=== PATIENT | female | born 1960 | race African-American/Black ===

== ENCOUNTER 2019-11-13 17:11 | Inpatient (IN) | payer OTHER ==
[2019-11-13 19:44] VITALS: BMI 25.5
--- NOTE | 2019-11-13 22:36 | HP ---
CIWA Score Nausea/Vomitin-Mild Nausea/No Vomiting Muscle Tremors: 4-Moderate,w/Arms Extend Anxiety: 2 Agitation: 0-Normal Activity Paroxysmal Sweats: 4-Forehead w/Sweat Beads Orientation: 1-Uncertain about Date Tacttile Disturbances: 0-None Auditory Disturbances: 0-None Visual Disturbances: 0-None Headache: 2-Mild CIWA-Ar Total Score: 14 - Admission Criteria OASAS Guidelines: Admission for Medically Managed Detox: Requires at least one of the followin. CIWA greater than 12 2. Seizures within the past 24 hours 3. Delirium tremens within the past 24 hours 4. Hallucinations within the past 24 hours 5. Acute intervention needed for co occurring medical disorder 6. Acute intervention needed for co occurring psychiatric disorder 7. Severe withdrawal that cannot be handled at a lower level of care (continued vomiting, continued diarrhea, abnormal vital signs) requiring intravenous medication and/or fluids 8. Admitting History and Physical - Smoking History Smoking history: Current every day smoker Have you smoked in the past 12 months: Yes Aproximately how many cigarettes per day: 1 - Alcohol/Substance Use Hx Alcohol Use: Yes (BEER/GIORGY VODKA) Admission ROS [facility] Chief Complaint: Alcohol withdrawal symptoms Allergies/Adverse Reactions: Allergies Allergy/AdvReac Type Severity Reaction Status Date / Time No Known Allergies Allergy Verified 11/13/19 19:18 History of Present Illness: 59 years old female with a long history of alcohol dependence is seeking admission to detox. Patient reports that her last detox was for the period 05/20 - 05/24/2015. [facility] Patient reports insignificant period of sobriety and denies any detoxification since May 2015. She denies any medical history, psych. history and suicidal ideation at this time. She reports that she is homeless and has been in [facility] multiple times. Exam Limitations: No Limitations - Ebola screening Have you traveled outside of the country in the last 21 days: No (N) Have you had contact with anyone from an Ebola affected area: No Do you have a fever: No - Review of Systems Constitutional: Chills, Changes in sleep EENT: reports: No Symptoms Reported Respiratory: reports: No Symptoms reported Cardiac: reports: No Symptoms Reported GI: reports: No Symptoms Reported : reports: No Symptoms Reported Musculoskeletal: reports: Back Pain Neuro: reports: No Symptoms reported Endocrine: reports: No Symptoms Reported Hematology: reports: No Symptoms Reported Psychiatric: reports: Mood/Affect Appropiate Other Systems: Reviewed and Negative Patient History - Patient Medical History Hx Anemia: No Hx Asthma: No Hx Chronic Obstructive Pulmonary Disease (COPD): No Hx Cardiac Disorders: No Hx Hypertension: No Hx Hypercholesterolemia: No HX Cerebrovascular Accident: No Hx Seizures: No Hx Diabetes: No Hx Gastrointestinal Disorders: No Hx Genitourinary Disorders: No Hx Sexually Transmitted Disorders: No Hx Renal Disease (ESRD): No Hx Thyroid Disease: No Hx Human Immunodeficiency Virus (HIV): No (NEGATIVE ) Hx Hepatitis C: No (REQUESTS TESTING) Hx Depression: No Hx Suicide Attempt: No (Denies suicidal ideation at this ) Hx Schizophrenia: No - Patient Surgical History Past Surgical History: Yes Hx Neurologic Surgery: No Hx Cataract Extraction: No Hx Cardiac Surgery: No Hx Lung Surgery: No Hx Breast Surgery: No Hx Breast Biopsy: No Hx Abdominal Surgery: No Hx Appendectomy: No Hx Cholecystectomy: No Hx Genitourinary Surgery: No Hx Section: No Hx Orthopedic Surgery: No Other Surgical History: CARPEL TUNNEL SUIRGERY Anesthesia Reaction: No - PPD History Previous Implant?: Yes Documented Results: Negative w/proof Implanted On Prior [facility] Admission?: Yes Date: 05/22/15 PPD to be Administered?: Yes - Reproductive History Patient is a Female of Child Bearing Age (11 -55 yrs old): Yes LMP comment: MENOPAUSAL 10 YEARS AGO - Smoking Cessation Smoking history: Former smoker Have you smoked in the past 12 months: No Aproximately how many cigarettes per day: 0 Hx Chewing Tobacco Use: No Initiated information on smoking cessation: No - Substance & Tx. History Hx Alcohol Use: Yes Hx Substance Use: Yes Substance Use Type: Alcohol, Marijuana Hx Substance Use Treatment: Yes ([facility]) - Substances abused Alcohol Substance route: Oral Frequency: Daily Amount used: 1/2 bottle of talha (vodka) (3) Age of first use: 14 Date of last use: 11/13/19 Admission Physical Exam [facility] - Vital Signs Vital Signs: Vital Signs - 24 hr 11/13/19 19:28 Temperature 98.6 F Pulse Rate 95 H Respiratory 18 Rate Blood Pressure 138/109 H - Physical General Appearance: Yes: Moderate Distress, Tremorous, Sweating, Anxious HEENTM: Yes: Nasal Congestion Respiratory: Yes: Lungs Clear, Normal Breath Sounds, No Respiratory Distress Neck: Yes: Within Normal Limits Breast: Yes: Breast Exam Deferred Cardiology: Yes: Tachycardia Abdominal: Yes: Normal Bowel Sounds, Soft Genitourinary: Yes: Within Normal Limits Back: Yes: Normal Inspection Musculoskeletal: Yes: Back pain Extremities: Yes: Tremors Neurological: Yes: Alert, Normal Mood/Affect Integumentary: Yes: Warm Lymphatic: Yes: Within Normal Limits - Diagnostic (1) Alcohol dependence with withdrawal, uncomplicated Current Visit: Yes Status: Acute (2) Marijuana dependence Current Visit: Yes Status: Chronic (3) Cocaine dependence Current Visit: Yes Status: Chronic Cleared for Admission S - Detox or Rehab [facility] Level of Care: Medically Managed Detox Regimen/Protocol: Librium Breathalyzer - Breathalyzer Breathalyzer: 0 Urine Drug Screen - Test Device Lot number: [id number] Expiration date: 08/07/20 - Control Is test valid?: Yes - Results Drug screen NEGATIVE: No Urine drug screen results: THC-Marijuana, BLAKE-Cocaine Inpatient Rehab Admission - Rehab Decision to Admit Inpatient rehab admission?: No
[2019-11-13] MEDS ORDERED: MENTHOL/PHENOL 1 EACH UD MM PRN (22:52)
[2019-11-13] MEDS ORDERED: ACETAMINOPHEN 325 MG TABLET (FP) PO PRN ×2 (22:52)
[2019-11-13] MEDS ORDERED: METHADONE HCL 10 MG TABLET (FOR DETOX USE ONLY) PO ONE (22:52)
[2019-11-13] MEDS ORDERED: METHOCARBAMOL 500 MG TABLET PO PRN (22:52)
[2019-11-13] MEDS ORDERED: cloNIDine HCL 0.1 MG TABLET PO PRN (22:52)
[2019-11-13] MEDS ORDERED: MAG HYDROX/AL HYDROX/SIMETH 30 ML UNIT-DOSE CUP PO PRN (22:52)
[2019-11-13] MEDS ORDERED: hydrOXYzine PAMOATE 25 MG CAPSULE (FP) PO PRN (22:52)
[2019-11-13] MEDS ORDERED: BISMUTH SUBSALICYLATE 524 MG/30 ML UD PO PRN (22:52)
[2019-11-13] MEDS ORDERED: MAGNESIUM CITRATE 300 ML BOTTLE PO PRN (22:52)
[2019-11-13] MEDS ORDERED: MAGNESIUM HYDROX 2400MG/30ML ORAL SUSPENSION 30 ML CUP PO PRN (22:52)
[2019-11-13] MEDS ORDERED: chlordiazePOXIDE HCL 10 MG CAPSULE PO PRN (22:56)
[2019-11-13] MEDS: chlordiazePOXIDE HCL 25 MG CAPSULE PO SCH (23:47)
[2019-11-14] MEDS: chlordiazePOXIDE HCL 25 MG CAPSULE PO SCH ×3 (05:11→21:42)
--- NOTE | 2019-11-14 09:26 | EKG ---
Test Reason : Blood Pressure : / mmHG Vent. Rate : 075 BPM Atrial Rate : 075 BPM P-R Int : 138 ms QRS Dur : 070 ms QT Int : 424 ms P-R-T Axes : 057 008 041 degrees QTc Int : 473 ms NORMAL SINUS RHYTHM POSSIBLE LEFT ATRIAL ENLARGEMENT BORDERLINE ECG NO PREVIOUS ECGS AVAILABLE Confirmed by Watson Wilkerson MD ([id number]) on 11/14/2019 9:26:15 AM Referred By: Confirmed By:Watson Wilkerson MD
[2019-11-14 09:45] LABS: HEMATOCRIT 35.8 % (32.4-45.2); HEMOGLOBIN 12.3 GM/dL (10.7-15.3); MCH 38.4 pg (25.7-33.7); MCHC 34.2 g/dl (32.0-36.0); MEAN CELL VOLUME 112.3 fl (80-96); MEAN PLT VOLUME 10.5 fl (7.5-11.1); PLATELET COUNT 109 K/MM3 (134-434); RBC 3.19 M/mm3 (3.60-5.2); RDW 12.5 % (11.6-15.6); WHITE BLOOD COUNT 5.2 K/mm3 (4.0-10.0)
[2019-11-14] MEDS ORDERED: METHADONE HCL 5 MG TABLET (FOR DETOX USE ONLY) PO ONE (10:00)
[2019-11-14] MEDS: PRENATAL VITAMINS W/ FOLIC ACID TABLET (FP) PO SCH (10:17)
[2019-11-14] MEDS: AMMONIUM LACTATE 12% CREAM 140 GM TUBE TP SCH (10:17)
[2019-11-14 11:08] LABS: ALBUMIN 3.5 g/dl (3.4-5.0); BILIRUBIN,TOTAL 1.1 mg/dL (0.2-1); BLOOD UREA NITROGEN 8.3 mg/dL (7-18); CALCIUM 9.1 mg/dL (8.5-10.1); CREATININE 0.6 mg/dL (0.55-1.3); POTASSIUM 3.7 mmol/L (3.5-5.1); TOT PROT 7.3 g/dl (6.4-8.2)
--- NOTE | 2019-11-14 12:41 | PN ---
[facility] CIWA - CIWA Score Nausea/Vomitin-Mild Nausea/No Vomiting Muscle Tremors: 2 Anxiety: 4-Mod. Anxious/Guarded Agitation: 2 Paroxysmal Sweats: 2 Orientation: 0-Oriented Tacttile Disturbances: 0-None Auditory Disturbances: 0-None Visual Disturbances: 0-None Headache: 1-Very Mild CIWA-Ar Total Score: 12 S Progress Note (SOAP) Subjective: 59 years old female admitted on 11/13/19 for alcohol withdrawal sx management treating with librim detox regimen ate breakfast and lunch in day room tolerated food and fluid well less tremor today encourage to attend detox groups and meetings Objective: 11/14/19 12:40 Vital Signs Temperature 99.1 F 11/14/19 09:33 Pulse Rate 100 H 11/14/19 09:33 Respiratory Rate 20 11/14/19 09:33 Blood Pressure 91/55 L 11/14/19 09:33 O2 Sat by Pulse Oximetry (%) Laboratory Last Values WBC 5.2 K/mm3 (4.0-10.0) 11/14/19 08:00 RBC 3.19 M/mm3 (3.60-5.2) L 11/14/19 08:00 Hgb 12.3 GM/dL (10.7-15.3) 11/14/19 08:00 Hct 35.8 % (32.4-45.2) 11/14/19 08:00 MCV 112.3 fl (80-96) H 11/14/19 08:00 MCH 38.4 pg (25.7-33.7) H 11/14/19 08:00 MCHC 34.2 g/dl (32.0-36.0) 11/14/19 08:00 RDW 12.5 % (11.6-15.6) 11/14/19 08:00 Plt Count 109 K/MM3 (134-434) L D 11/14/19 08:00 MPV 10.5 fl (7.5-11.1) 11/14/19 08:00 Sodium 137 mmol/L (136-145) 11/14/19 08:00 Potassium 3.7 mmol/L (3.5-5.1) 11/14/19 08:00 Chloride 102 mmol/L (98-107) 11/14/19 08:00 Carbon Dioxide 27 mmol/L (21-32) 11/14/19 08:00 Anion Gap 8 MMOL/L (8-16) 11/14/19 08:00 BUN 8.3 mg/dL (7-18) 11/14/19 08:00 Creatinine 0.6 mg/dL (0.55-1.3) 11/14/19 08:00 Est GFR (CKD-EPI)AfAm 117.27 11/14/19 08:00 Est GFR (CKD-EPI)NonAf 101.18 11/14/19 08:00 Random Glucose 99 mg/dL (74-106) 11/14/19 08:00 Calcium 9.1 mg/dL (8.5-10.1) 11/14/19 08:00 Total Bilirubin 1.1 mg/dL (0.2-1) H 11/14/19 08:00 AST 115 U/L (15-37) H 11/14/19 08:00 ALT 60 U/L (13-61) 11/14/19 08:00 Alkaline Phosphatase 89 U/L (45-117) 11/14/19 08:00 Total Protein 7.3 g/dl (6.4-8.2) 11/14/19 08:00 Albumin 3.5 g/dl (3.4-5.0) 11/14/19 08:00 lab noted Assessment: 11/14/19 12:41 alcohol withdrawal Plan: libirm regimen
[2019-11-14] MEDS: MELATONIN 5 MG TABLETS PO PRN (21:42)
[2019-11-14] MEDS: THIAMINE HCL 100 MG TABLET (FP) PO SCH (21:42)
[2019-11-15] MEDS: chlordiazePOXIDE 5 MG CAPSULE PO SCH ×3 (05:24→22:26)
[2019-11-15] MEDS: IBUPROFEN 400 MG TABLET (FP) PO PRN (08:23)
[2019-11-15] MEDS ORDERED: METHADONE HCL 10 MG TABLET (FOR DETOX USE ONLY) PO ONE (10:00)
[2019-11-15] MEDS: AMMONIUM LACTATE 12% CREAM 140 GM TUBE TP SCH (10:15)
[2019-11-15] MEDS: PRENATAL VITAMINS W/ FOLIC ACID TABLET (FP) PO SCH (10:15)
--- NOTE | 2019-11-15 12:00 | PN ---
S CIWA - CIWA Score Nausea/Vomitin-No Nausea/No Vomiting Muscle Tremors: 2 Anxiety: 2 Agitation: 2 Paroxysmal Sweats: 1-Minimal Palms Moist Orientation: 0-Oriented Tacttile Disturbances: 1-Very Mild Itch/Numbness Auditory Disturbances: 0-None Visual Disturbances: 0-None Headache: 1-Very Mild CIWA-Ar Total Score: 9 S Progress Note (SOAP) Subjective: 59 years old female admitted on 11/13/19 for alcohol withdrawal sx management treating with librium detox regimen feeling ok today ate breakfast resting in bed encourage to attend groups and meetings while in detox Objective: 11/15/19 11:59 Vital Signs Temperature 98.4 F 11/15/19 09:10 Pulse Rate 95 H 11/15/19 09:10 Respiratory Rate 20 11/15/19 09:10 Blood Pressure 106/65 11/15/19 09:10 O2 Sat by Pulse Oximetry (%) Laboratory Last Values WBC 5.2 K/mm3 (4.0-10.0) 11/14/19 08:00 RBC 3.19 M/mm3 (3.60-5.2) L 11/14/19 08:00 Hgb 12.3 GM/dL (10.7-15.3) 11/14/19 08:00 Hct 35.8 % (32.4-45.2) 11/14/19 08:00 MCV 112.3 fl (80-96) H 11/14/19 08:00 MCH 38.4 pg (25.7-33.7) H 11/14/19 08:00 MCHC 34.2 g/dl (32.0-36.0) 11/14/19 08:00 RDW 12.5 % (11.6-15.6) 11/14/19 08:00 Plt Count 109 K/MM3 (134-434) L D 11/14/19 08:00 MPV 10.5 fl (7.5-11.1) 11/14/19 08:00 Sodium 137 mmol/L (136-145) 11/14/19 08:00 Potassium 3.7 mmol/L (3.5-5.1) 11/14/19 08:00 Chloride 102 mmol/L (98-107) 11/14/19 08:00 Carbon Dioxide 27 mmol/L (21-32) 11/14/19 08:00 Anion Gap 8 MMOL/L (8-16) 11/14/19 08:00 BUN 8.3 mg/dL (7-18) 11/14/19 08:00 Creatinine 0.6 mg/dL (0.55-1.3) 11/14/19 08:00 Est GFR (CKD-EPI)AfAm 117.27 11/14/19 08:00 Est GFR (CKD-EPI)NonAf 101.18 11/14/19 08:00 Random Glucose 99 mg/dL (74-106) 11/14/19 08:00 Calcium 9.1 mg/dL (8.5-10.1) 11/14/19 08:00 Total Bilirubin 1.1 mg/dL (0.2-1) H 11/14/19 08:00 AST 115 U/L (15-37) H 11/14/19 08:00 ALT 60 U/L (13-61) 11/14/19 08:00 Alkaline Phosphatase 89 U/L (45-117) 11/14/19 08:00 Total Protein 7.3 g/dl (6.4-8.2) 11/14/19 08:00 Albumin 3.5 g/dl (3.4-5.0) 11/14/19 08:00 RPR Titer Nonreactive (NONREACTIVE) 11/14/19 08:00 HIV 1&2 Antibody Screen Negative 11/14/19 08:00 HIV P24 Antigen Negative 11/14/19 08:00 lab noted Assessment: 11/15/19 12:00 alcohol withdrawal Plan: librium regimen
[2019-11-15] MEDS: THIAMINE HCL 100 MG TABLET (FP) PO SCH (22:25)
[2019-11-15] MEDS: MELATONIN 5 MG TABLETS PO PRN (22:26)
[2019-11-16] MEDS ORDERED: chlordiazePOXIDE HCL 10 MG CAPSULE PO PRN
[2019-11-16] MEDS: chlordiazePOXIDE HCL 10 MG CAPSULE PO SCH ×3 (05:45→22:06)
[2019-11-16] MEDS ORDERED: METHADONE HCL 5 MG TABLET (FOR DETOX USE ONLY) PO ONE (06:00)
[2019-11-16] MEDS: PRENATAL VITAMINS W/ FOLIC ACID TABLET (FP) PO SCH (10:06)
[2019-11-16] MEDS: AMMONIUM LACTATE 12% CREAM 140 GM TUBE TP SCH (10:06)
[2019-11-16] MEDS ORDERED: ALBUTEROL SO4 2.5/IPRATROPIUM 0.5 INH SOL 3 ML VIAL.NEB. NEB PRN (10:50)
--- NOTE | 2019-11-16 10:52 | PN ---
[facility] CIWA - CIWA Score Nausea/Vomitin-Mild Nausea/No Vomiting Muscle Tremors: 3 Anxiety: 3 Agitation: 0-Normal Activity Paroxysmal Sweats: 2 Orientation: 0-Oriented Tacttile Disturbances: 1-Very Mild Itch/Numbness Auditory Disturbances: 0-None Visual Disturbances: 0-None Headache: 2-Mild CIWA-Ar Total Score: 12 S Progress Note (SOAP) Subjective: c/o of cough, chills, back pain, leg cramps, decrease appetite Objective: 11/16/19 10:51 Vital Signs Temperature 99.4 F 11/16/19 09:10 Pulse Rate 97 H 11/16/19 09:10 Respiratory Rate 16 11/16/19 09:10 Blood Pressure 95/62 11/16/19 09:10 O2 Sat by Pulse Oximetry (%) Laboratory Last Values WBC 5.2 K/mm3 (4.0-10.0) 11/14/19 08:00 RBC 3.19 M/mm3 (3.60-5.2) L 11/14/19 08:00 Hgb 12.3 GM/dL (10.7-15.3) 11/14/19 08:00 Hct 35.8 % (32.4-45.2) 11/14/19 08:00 MCV 112.3 fl (80-96) H 11/14/19 08:00 MCH 38.4 pg (25.7-33.7) H 11/14/19 08:00 MCHC 34.2 g/dl (32.0-36.0) 11/14/19 08:00 RDW 12.5 % (11.6-15.6) 11/14/19 08:00 Plt Count 109 K/MM3 (134-434) L D 11/14/19 08:00 MPV 10.5 fl (7.5-11.1) 11/14/19 08:00 Sodium 137 mmol/L (136-145) 11/14/19 08:00 Potassium 3.7 mmol/L (3.5-5.1) 11/14/19 08:00 Chloride 102 mmol/L (98-107) 11/14/19 08:00 Carbon Dioxide 27 mmol/L (21-32) 11/14/19 08:00 Anion Gap 8 MMOL/L (8-16) 11/14/19 08:00 BUN 8.3 mg/dL (7-18) 11/14/19 08:00 Creatinine 0.6 mg/dL (0.55-1.3) 11/14/19 08:00 Est GFR (CKD-EPI)AfAm 117.27 11/14/19 08:00 Est GFR (CKD-EPI)NonAf 101.18 11/14/19 08:00 Random Glucose 99 mg/dL (74-106) 11/14/19 08:00 Calcium 9.1 mg/dL (8.5-10.1) 11/14/19 08:00 Total Bilirubin 1.1 mg/dL (0.2-1) H 11/14/19 08:00 AST 115 U/L (15-37) H 11/14/19 08:00 ALT 60 U/L (13-61) 11/14/19 08:00 Alkaline Phosphatase 89 U/L (45-117) 11/14/19 08:00 Total Protein 7.3 g/dl (6.4-8.2) 11/14/19 08:00 Albumin 3.5 g/dl (3.4-5.0) 11/14/19 08:00 RPR Titer Nonreactive (NONREACTIVE) 11/14/19 08:00 HIV 1&2 Antibody Screen Negative 11/14/19 08:00 HIV P24 Antigen Negative 11/14/19 08:00 Assessment: 11/16/19 10:52 Aox3 no acute distress EENT WNL Full ROM ambulating in the unit withdrawal sx Plan: increase fluids repeat CMP continue detox continue to monitor
[2019-11-16] MEDS: IBUPROFEN 400 MG TABLET (FP) PO PRN (14:45)
[2019-11-16] MEDS: THIAMINE HCL 100 MG TABLET (FP) PO SCH (22:06)
[2019-11-17] MEDS ORDERED: chlordiazePOXIDE HCL 10 MG CAPSULE PO ONE (05:00)
--- NOTE | 2019-11-17 08:50 | DS ---
[facility] Detox Discharge Summary Admission Date: 11/13/19 Discharge Date: 11/17/19 - History Present History: Alcohol Dependence, Cannabis Dependence, Cocaine Dependence Additional Comments: Patient successfully completed detox., Follow up with next level of care at [facility]. Follow up with primary care provider upon discharge. Pertinent Past History: Vital Signs Temperature 98.3 F 11/17/19 09:09 Pulse Rate 95 H 11/17/19 09:09 Respiratory Rate 16 11/17/19 09:09 Blood Pressure 98/63 11/17/19 09:09 O2 Sat by Pulse Oximetry (%) Laboratory Last Values WBC 5.2 K/mm3 (4.0-10.0) 11/14/19 08:00 RBC 3.19 M/mm3 (3.60-5.2) L 11/14/19 08:00 Hgb 12.3 GM/dL (10.7-15.3) 11/14/19 08:00 Hct 35.8 % (32.4-45.2) 11/14/19 08:00 MCV 112.3 fl (80-96) H 11/14/19 08:00 MCH 38.4 pg (25.7-33.7) H 11/14/19 08:00 MCHC 34.2 g/dl (32.0-36.0) 11/14/19 08:00 RDW 12.5 % (11.6-15.6) 11/14/19 08:00 Plt Count 109 K/MM3 (134-434) L D 11/14/19 08:00 MPV 10.5 fl (7.5-11.1) 11/14/19 08:00 Sodium 137 mmol/L (136-145) 11/14/19 08:00 Potassium 3.7 mmol/L (3.5-5.1) 11/14/19 08:00 Chloride 102 mmol/L (98-107) 11/14/19 08:00 Carbon Dioxide 27 mmol/L (21-32) 11/14/19 08:00 Anion Gap 8 MMOL/L (8-16) 11/14/19 08:00 BUN 8.3 mg/dL (7-18) 11/14/19 08:00 Creatinine 0.6 mg/dL (0.55-1.3) 11/14/19 08:00 Est GFR (CKD-EPI)AfAm 117.27 11/14/19 08:00 Est GFR (CKD-EPI)NonAf 101.18 11/14/19 08:00 Random Glucose 99 mg/dL (74-106) 11/14/19 08:00 Calcium 9.1 mg/dL (8.5-10.1) 11/14/19 08:00 Total Bilirubin 1.1 mg/dL (0.2-1) H 11/14/19 08:00 AST 115 U/L (15-37) H 11/14/19 08:00 ALT 60 U/L (13-61) 11/14/19 08:00 Alkaline Phosphatase 89 U/L (45-117) 11/14/19 08:00 Total Protein 7.3 g/dl (6.4-8.2) 11/14/19 08:00 Albumin 3.5 g/dl (3.4-5.0) 11/14/19 08:00 RPR Titer Nonreactive (NONREACTIVE) 11/14/19 08:00 HIV 1&2 Antibody Screen Negative 11/14/19 08:00 HIV P24 Antigen Negative 11/14/19 08:00 - Physical Exam Results Vital Signs: Vital Signs Temperature 98.8 F 11/17/19 06:12 Pulse Rate 74 11/17/19 06:12 Respiratory Rate 18 11/17/19 06:12 Blood Pressure 96/60 11/17/19 06:12 O2 Sat by Pulse Oximetry (%) Pertinent Admission Physical Exam Findings: NO SI/ HI PATIENT AOX3 NO ACUTE DISTRESS EENT WNL FULL ROM NO GAIT DISTURBANCE NO EDEMA OR ERYTHEMA Vital Signs Temperature 98.3 F 11/17/19 09:09 Pulse Rate 95 H 11/17/19 09:09 Respiratory Rate 16 11/17/19 09:09 Blood Pressure 98/63 11/17/19 09:09 O2 Sat by Pulse Oximetry (%) Laboratory Last Values WBC 5.2 K/mm3 (4.0-10.0) 11/14/19 08:00 RBC 3.19 M/mm3 (3.60-5.2) L 11/14/19 08:00 Hgb 12.3 GM/dL (10.7-15.3) 11/14/19 08:00 Hct 35.8 % (32.4-45.2) 11/14/19 08:00 MCV 112.3 fl (80-96) H 11/14/19 08:00 MCH 38.4 pg (25.7-33.7) H 11/14/19 08:00 MCHC 34.2 g/dl (32.0-36.0) 11/14/19 08:00 RDW 12.5 % (11.6-15.6) 11/14/19 08:00 Plt Count 109 K/MM3 (134-434) L D 11/14/19 08:00 MPV 10.5 fl (7.5-11.1) 11/14/19 08:00 Sodium 137 mmol/L (136-145) 11/14/19 08:00 Potassium 3.7 mmol/L (3.5-5.1) 11/14/19 08:00 Chloride 102 mmol/L (98-107) 11/14/19 08:00 Carbon Dioxide 27 mmol/L (21-32) 11/14/19 08:00 Anion Gap 8 MMOL/L (8-16) 11/14/19 08:00 BUN 8.3 mg/dL (7-18) 11/14/19 08:00 Creatinine 0.6 mg/dL (0.55-1.3) 11/14/19 08:00 Est GFR (CKD-EPI)AfAm 117.27 11/14/19 08:00 Est GFR (CKD-EPI)NonAf 101.18 11/14/19 08:00 Random Glucose 99 mg/dL (74-106) 11/14/19 08:00 Calcium 9.1 mg/dL (8.5-10.1) 11/14/19 08:00 Total Bilirubin 1.1 mg/dL (0.2-1) H 11/14/19 08:00 AST 115 U/L (15-37) H 11/14/19 08:00 ALT 60 U/L (13-61) 11/14/19 08:00 Alkaline Phosphatase 89 U/L (45-117) 11/14/19 08:00 Total Protein 7.3 g/dl (6.4-8.2) 11/14/19 08:00 Albumin 3.5 g/dl (3.4-5.0) 11/14/19 08:00 RPR Titer Nonreactive (NONREACTIVE) 11/14/19 08:00 HIV 1&2 Antibody Screen Negative 11/14/19 08:00 HIV P24 Antigen Negative 11/14/19 08:00 - Treatment Hospital Course: Detox Protocol Followed, Detoxed Safely, Responded well, Discharged Condition Good, Rehab Referral Accepted Patient has Accepted a Rehab Referral to: [facility] - Medication Discharge Medications: Ambulatory Orders Ammonium Lactate Cream [Lac-Hydrin 12% *Cream*] 1 applic TP DAILY 11/13/19 Ciclopirox Olamine [Ciclopirox] 15 gm TP DAILY 11/13/19 Ciclopirox [Penlac] 6.6 ml TP ASDIR 11/13/19 - Diagnosis (1) Alcohol dependence with withdrawal, uncomplicated Current Visit: Yes Status: Acute (2) Cocaine dependence Current Visit: Yes Status: Chronic (3) Marijuana dependence Current Visit: Yes Status: Chronic (4) Alcohol dependence Current Visit: No Status: Acute - AMA Did Patient Leave Against Medical Advice: No
[2019-11-17 09:10] VITALS: BP 98/63; PULSE 95; TEMP 98.3
[2019-11-17] MEDS: AMMONIUM LACTATE 12% CREAM 140 GM TUBE TP SCH (10:36)
[2019-11-17] MEDS: PRENATAL VITAMINS W/ FOLIC ACID TABLET (FP) PO SCH (10:36)
== END 2019-11-17 12:52 | disposition other institution (70) | DRG 774 ==
LOC: YASAS 17:11 → Y3N 23:01
PROVIDERS: ADMIT Allergy & Immunology; ATTEND Allergy & Immunology
PROC: HZ2ZZZZ Detoxification Services for Substance Abuse Treatment (ICD-10-PCS; principal; 2019-11-13)
DX: F10.230 Alcohol dependence with withdrawal, uncomplicated (principal); F14.20 Cocaine dependence, uncomplicated; F12.20 Cannabis dependence, uncomplicated; R00.0 Tachycardia, unspecified; Z87.891 Personal history of nicotine dependence
CPT/HCPCS: 36415; 80053; 85027; 86593; 87389; 93005; 93010

== ENCOUNTER 2019-11-17 11:41 | Inpatient (IN) | payer OTHER ==
--- NOTE | 2019-11-17 09:30 | HP ---
[facility] Rehab Assess/Revision - Admission History Admitted to Rehab from: [facility] Date of Admission to Rehab: 11/17/2019 - Findings Detox History & Physical reviewed: Yes Concur with findings: Yes Inpatient Rehab Admission - Rehab Decision to Admit Inpatient rehab admission?: Yes - Initial Determination Are CD services needed?: Yes Free of communicable disease: Yes Not in need of hospitalization: Yes - Rehab Admission Criteria Previous failed treatment: Yes Poor recovery environment: Yes Comorbidities: Yes Lacks judgement: Yes Patient is meeting Inpatient Rehab admission criteria:: Yes
[2019-11-17] MEDS: PRENATAL VITAMINS W/ FOLIC ACID TABLET (FP) PO SCH (10:40)
[2019-11-17] MEDS: NICOTINE 14 MG/24 HOURS TOPICAL PATCH TD SCH (10:40)
[~2019-11-17 11:41] MED LIST: LOPERAMIDE HCL 2 MG CAPSULE PO PRN; MENTHOL/PHENOL 1 EACH UD MM PRN; NICOTINE POLACRILEX 2 MG GUM BUC PRN; P-EPHED 60MG/TRIPROLIDI 2.5MG TABLET PO PRN; guaiFENesin 200 MG/10 ML 10 ML UNIT-DOSE CUPS PO PRN
--- NOTE | 2019-11-17 14:17 | PN ---
[facility] Progress Note Note: Vital Signs (72 hours) 11/17/19 13:08 Temperature 97.3 F L Pulse Rate 84 Respiratory 18 Rate Blood Pressure 101/67 Patient transferred from [address] [place] [address] and admitted to rehab for alcohol dependence. She is a 59 year old female and this is her second admission to [facility]. Last admission was in 2014. She denies any medical/psychiatric history and denies SI/HI ideation at this time. Currently homeless. ROS: denies shakes, chills and sweating PE: alert and oriented x 3 skin warm and dry +perrla,eoms intact bl in no acute distress ext full rom, amb ad flynn no tremors A/P: alcohol dependence Detox labs reviewed oral hydration encouraged continue meds and rehab services
[2019-11-17] MEDS: THIAMINE HCL 100 MG TABLET (FP) PO SCH (21:08)
[2019-11-18] MEDS: PRENATAL VITAMINS W/ FOLIC ACID TABLET (FP) PO SCH (09:31)
[2019-11-18] MEDS: NICOTINE 14 MG/24 HOURS TOPICAL PATCH TD SCH (09:32)
[2019-11-18] MEDS: IBUPROFEN 400 MG TABLET (FP) PO PRN (15:00)
[2019-11-18] MEDS: MAGNESIUM HYDROX 2400MG/30ML ORAL SUSPENSION 30 ML CUP PO PRN (17:26)
[2019-11-18] MEDS: THIAMINE HCL 100 MG TABLET (FP) PO SCH (21:43)
[2019-11-18] MEDS: MELATONIN 5 MG TABLETS PO PRN (21:43)
[2019-11-19] MEDS: ACETAMINOPHEN 325 MG TABLET (FP) PO PRN (09:16)
[2019-11-19] MEDS: PRENATAL VITAMINS W/ FOLIC ACID TABLET (FP) PO SCH (09:16)
[2019-11-19] MEDS: NICOTINE 14 MG/24 HOURS TOPICAL PATCH TD SCH (09:16)
[2019-11-19] MEDS: MAGNESIUM HYDROX 2400MG/30ML ORAL SUSPENSION 30 ML CUP PO PRN (21:42)
[2019-11-19] MEDS: MELATONIN 5 MG TABLETS PO PRN (21:43)
[2019-11-19] MEDS: THIAMINE HCL 100 MG TABLET (FP) PO SCH (21:43)
[2019-11-20] MEDS: PRENATAL VITAMINS W/ FOLIC ACID TABLET (FP) PO SCH (09:33)
[2019-11-20] MEDS: NICOTINE 14 MG/24 HOURS TOPICAL PATCH TD SCH (09:34)
[2019-11-20] MEDS: MELATONIN 5 MG TABLETS PO PRN (21:43)
[2019-11-20] MEDS: THIAMINE HCL 100 MG TABLET (FP) PO SCH (21:43)
[2019-11-20] MEDS: MAGNESIUM HYDROX 2400MG/30ML ORAL SUSPENSION 30 ML CUP PO PRN (21:44)
[2019-11-21] MEDS: NICOTINE 14 MG/24 HOURS TOPICAL PATCH TD SCH (09:41)
[2019-11-21] MEDS: PRENATAL VITAMINS W/ FOLIC ACID TABLET (FP) PO SCH (09:41)
[2019-11-21] MEDS: THIAMINE HCL 100 MG TABLET (FP) PO SCH (21:27)
[2019-11-21] MEDS: METHOCARBAMOL 500 MG TABLET PO PRN (21:27)
[2019-11-21] MEDS: MAGNESIUM HYDROX 2400MG/30ML ORAL SUSPENSION 30 ML CUP PO PRN (21:27)
[2019-11-22] MEDS: PRENATAL VITAMINS W/ FOLIC ACID TABLET (FP) PO SCH (09:37)
[2019-11-22] MEDS: NICOTINE 14 MG/24 HOURS TOPICAL PATCH TD SCH (09:37)
--- NOTE | 2019-11-22 14:19 | PN ---
[facility] Progress Note Note: Requesting anti fungal cream- for feet PE: Vital Signs - 24 hr 11/22/19 11/22/19 11/22/19 00:30 03:30 07:00 Temperature 98.3 F Pulse Rate 84 Respiratory 16 16 18 Rate Blood Pressure 93/55 L feet- thickened skin a/p: tinea pedis- lotrimin cream pt getting ensure- 120cc qd. Pt weighed today 135lb
[2019-11-22] MEDS: CLOTRIMAZOLE 1% CREAM 15 GM TUBE TP SCH (22:00)
[2019-11-22] MEDS: THIAMINE HCL 100 MG TABLET (FP) PO SCH (22:00)
[2019-11-22] MEDS: MELATONIN 5 MG TABLETS PO PRN (22:01)
[2019-11-23] MEDS ORDERED: PT OWN MED DRAWER 7, Y5N ONE ×2 (08:31→20:35)
[2019-11-23] MEDS: PRENATAL VITAMINS W/ FOLIC ACID TABLET (FP) PO SCH (09:41)
[2019-11-23] MEDS: CLOTRIMAZOLE 1% CREAM 15 GM TUBE TP SCH ×2 (09:41→21:59)
[2019-11-23] MEDS: NICOTINE 14 MG/24 HOURS TOPICAL PATCH TD SCH (09:42)
--- NOTE | 2019-11-23 17:27 | PN ---
[facility] Progress Note Note: Pt with c/o anxiety. Vistaril 25mg po x1dose now.
[2019-11-23] MEDS ORDERED: hydrOXYzine PAMOATE 25 MG CAPSULE (FP) PO ONE (18:00)
[2019-11-23] MEDS: THIAMINE HCL 100 MG TABLET (FP) PO SCH (21:58)
[2019-11-23] MEDS: MELATONIN 5 MG TABLETS PO PRN (21:58)
[2019-11-24] MEDS: CLOTRIMAZOLE 1% CREAM 15 GM TUBE TP SCH ×2 (09:59→21:11)
[2019-11-24] MEDS: PRENATAL VITAMINS W/ FOLIC ACID TABLET (FP) PO SCH (09:59)
[2019-11-24] MEDS: NICOTINE 14 MG/24 HOURS TOPICAL PATCH TD SCH (10:00)
[2019-11-24] MEDS ORDERED: PT OWN MED DRAWER 7, Y5N ONE ×2 (19:30→22:24)
[2019-11-24] MEDS: THIAMINE HCL 100 MG TABLET (FP) PO SCH (21:11)
[2019-11-24] MEDS: MAGNESIUM HYDROX 2400MG/30ML ORAL SUSPENSION 30 ML CUP PO PRN (21:11)
[2019-11-24] MEDS: MELATONIN 5 MG TABLETS PO PRN (21:12)
[2019-11-25] MEDS: CLOTRIMAZOLE 1% CREAM 15 GM TUBE TP SCH ×2 (10:01→21:40)
[2019-11-25] MEDS: PRENATAL VITAMINS W/ FOLIC ACID TABLET (FP) PO SCH (10:01)
[2019-11-25] MEDS: MELATONIN 5 MG TABLETS PO PRN (21:22)
[2019-11-25] MEDS: THIAMINE HCL 100 MG TABLET (FP) PO SCH (21:22)
[2019-11-25] MEDS: hydrOXYzine PAMOATE 25 MG CAPSULE (FP) PO PRN (21:22)
[2019-11-26] MEDS: CLOTRIMAZOLE 1% CREAM 15 GM TUBE TP SCH ×2 (10:12→22:01)
[2019-11-26] MEDS: PRENATAL VITAMINS W/ FOLIC ACID TABLET (FP) PO SCH (10:12)
[2019-11-26] MEDS: hydrOXYzine PAMOATE 25 MG CAPSULE (FP) PO PRN (22:00)
[2019-11-26] MEDS: MELATONIN 5 MG TABLETS PO PRN (22:00)
[2019-11-26] MEDS: THIAMINE HCL 100 MG TABLET (FP) PO SCH (22:00)
[2019-11-27] MEDS ORDERED: PT OWN MED DRAWER 7, Y5N ONE ×2 (08:42→21:29)
[2019-11-27] MEDS: PRENATAL VITAMINS W/ FOLIC ACID TABLET (FP) PO SCH (10:00)
[2019-11-27] MEDS: CLOTRIMAZOLE 1% CREAM 15 GM TUBE TP SCH ×2 (10:39→21:29)
[2019-11-27] MEDS: THIAMINE HCL 100 MG TABLET (FP) PO SCH (21:28)
[2019-11-27] MEDS: hydrOXYzine PAMOATE 25 MG CAPSULE (FP) PO PRN (21:28)
[2019-11-27] MEDS: ARTIFICIAL TEARS (POLYVINYL ALCOHOL) OPTH DROPS OU PRN (21:29)
[2019-11-28] MEDS ORDERED: PT OWN MED DRAWER 7, Y5N ONE ×3 (08:36→21:35)
[2019-11-28] MEDS: CLOTRIMAZOLE 1% CREAM 15 GM TUBE TP SCH ×2 (09:53→21:32)
[2019-11-28] MEDS: PRENATAL VITAMINS W/ FOLIC ACID TABLET (FP) PO SCH (09:53)
[2019-11-28] MEDS: ARTIFICIAL TEARS (POLYVINYL ALCOHOL) OPTH DROPS OU PRN ×2 (09:55→21:36)
[2019-11-28] MEDS: ACETAMINOPHEN 325 MG TABLET (FP) PO PRN (21:31)
[2019-11-28] MEDS: MELATONIN 5 MG TABLETS PO PRN (21:31)
[2019-11-28] MEDS: THIAMINE HCL 100 MG TABLET (FP) PO SCH (21:32)
[2019-11-28] MEDS: MAG HYDROX/AL HYDROX/SIMETH 30 ML UNIT-DOSE CUP PO PRN (21:32)
[2019-11-29] MEDS: CLOTRIMAZOLE 1% CREAM 15 GM TUBE TP SCH (10:19)
[2019-11-29] MEDS: PRENATAL VITAMINS W/ FOLIC ACID TABLET (FP) PO SCH (10:19)
[2019-11-29] MEDS: hydrOXYzine PAMOATE 25 MG CAPSULE (FP) PO PRN ×2 (10:20→21:03)
[2019-11-29] MEDS: THIAMINE HCL 100 MG TABLET (FP) PO SCH (21:03)
[2019-11-29] MEDS: MELATONIN 5 MG TABLETS PO PRN (21:03)
[2019-11-29] MEDS ORDERED: PT OWN MED DRAWER 7, Y5N ONE (21:05)
[2019-11-29] MEDS: MAGNESIUM HYDROX 2400MG/30ML ORAL SUSPENSION 30 ML CUP PO PRN (21:51)
[2019-11-30] MEDS: PRENATAL VITAMINS W/ FOLIC ACID TABLET (FP) PO SCH (10:02)
[2019-11-30] MEDS: ARTIFICIAL TEARS (POLYVINYL ALCOHOL) OPTH DROPS OU PRN (10:03)
[2019-11-30] MEDS: ACETAMINOPHEN 325 MG TABLET (FP) PO PRN (14:47)
[2019-11-30] MEDS: THIAMINE HCL 100 MG TABLET (FP) PO SCH (21:57)
[2019-11-30] MEDS: hydrOXYzine PAMOATE 25 MG CAPSULE (FP) PO PRN (21:57)
[2019-11-30] MEDS: METHOCARBAMOL 500 MG TABLET PO PRN (21:57)
[2019-11-30] MEDS: MELATONIN 5 MG TABLETS PO PRN (21:57)
--- NOTE | 2019-12-01 08:39 | PN ---
[facility] Progress Note Note: Pt c/o hard stool with anal soreness when passing stool. Reports Hx of Hemorrhoids. Vital Signs - 24 hr 12/01/19 12/01/19 12/01/19 00:30 03:30 07:14 Temperature 97.6 F Pulse Rate 88 Respiratory 18 18 18 Rate Blood Pressure 101/63 Alert o x 3 nad oob ambulating with steady gait A/P Hx hemorriods Anal pain tucks pads, use after each BM colace 300 mg po HS Increase po fluids
[2019-12-01] MEDS ORDERED: WITCH HAZEL 50% (TUCKS) 40 PAD/JAR PAD TP PRN (08:41)
[2019-12-01] MEDS ORDERED: SODIUM PHOSPHATE/NA BIPHOS 133 ML ENEMA PR ONE (08:42)
[2019-12-01] MEDS: HYDROCORTISONE 2.5% TOPICAL CREAM 30 GM TUBE TP SCH ×2 (10:03→21:43)
[2019-12-01] MEDS: PRENATAL VITAMINS W/ FOLIC ACID TABLET (FP) PO SCH (10:04)
[2019-12-01] MEDS: ACETAMINOPHEN 325 MG TABLET (FP) PO PRN (18:52)
[2019-12-01] MEDS: MELATONIN 5 MG TABLETS PO PRN (21:41)
[2019-12-01] MEDS: THIAMINE HCL 100 MG TABLET (FP) PO SCH (21:41)
[2019-12-01] MEDS: hydrOXYzine PAMOATE 25 MG CAPSULE (FP) PO PRN (21:41)
[2019-12-01] MEDS ORDERED: PT OWN MED DRAWER 7, Y5N ONE (21:43)
[2019-12-01] MEDS: DOCUSATE SODIUM 100 MG CAPSULE (FP) PO SCH (21:43)
[2019-12-01] MEDS: MAGNESIUM HYDROX 2400MG/30ML ORAL SUSPENSION 30 ML CUP PO PRN (21:44)
[2019-12-02] MEDS: HYDROCORTISONE 2.5% TOPICAL CREAM 30 GM TUBE TP SCH ×2 (09:42→21:31)
[2019-12-02] MEDS: PRENATAL VITAMINS W/ FOLIC ACID TABLET (FP) PO SCH (09:42)
[2019-12-02] MEDS ORDERED: PT OWN MED DRAWER 7, Y5N ONE (19:31)
[2019-12-02] MEDS: DOCUSATE SODIUM 100 MG CAPSULE (FP) PO SCH (21:32)
[2019-12-02] MEDS: hydrOXYzine PAMOATE 25 MG CAPSULE (FP) PO PRN (21:32)
[2019-12-02] MEDS: MELATONIN 5 MG TABLETS PO PRN (21:32)
[2019-12-02] MEDS: THIAMINE HCL 100 MG TABLET (FP) PO SCH (21:33)
[2019-12-02] MEDS: MAGNESIUM HYDROX 2400MG/30ML ORAL SUSPENSION 30 ML CUP PO PRN (21:55)
[2019-12-03] MEDS: PRENATAL VITAMINS W/ FOLIC ACID TABLET (FP) PO SCH (09:38)
[2019-12-03] MEDS: HYDROCORTISONE 2.5% TOPICAL CREAM 30 GM TUBE TP SCH ×2 (09:39→22:22)
[2019-12-03] MEDS ORDERED: PT OWN MED DRAWER 7, Y5N ONE (19:56)
[2019-12-03] MEDS: MELATONIN 5 MG TABLETS PO PRN (21:54)
[2019-12-03] MEDS: THIAMINE HCL 100 MG TABLET (FP) PO SCH (21:54)
[2019-12-03] MEDS: hydrOXYzine PAMOATE 25 MG CAPSULE (FP) PO PRN (21:55)
[2019-12-03] MEDS: MAGNESIUM HYDROX 2400MG/30ML ORAL SUSPENSION 30 ML CUP PO PRN (21:57)
[2019-12-03] MEDS: DOCUSATE SODIUM 100 MG CAPSULE (FP) PO SCH (22:23)
[2019-12-04] MEDS: HYDROCORTISONE 2.5% TOPICAL CREAM 30 GM TUBE TP SCH ×2 (09:59→21:17)
[2019-12-04] MEDS: PRENATAL VITAMINS W/ FOLIC ACID TABLET (FP) PO SCH (09:59)
[2019-12-04] MEDS: MAGNESIUM CITRATE 300 ML BOTTLE PO PRN (10:24)
[2019-12-04] MEDS: ACETAMINOPHEN 325 MG TABLET (FP) PO PRN (13:04)
[2019-12-04] MEDS: METHOCARBAMOL 500 MG TABLET PO PRN (21:15)
[2019-12-04] MEDS: hydrOXYzine PAMOATE 25 MG CAPSULE (FP) PO PRN (21:15)
[2019-12-04] MEDS: THIAMINE HCL 100 MG TABLET (FP) PO SCH (21:15)
[2019-12-04] MEDS: TOLNAFTATE 1% POWDER 45 GM POW TP SCH (21:16)
[2019-12-04] MEDS ORDERED: PT OWN MED DRAWER 7, Y5N ONE (21:16)
[2019-12-04] MEDS: DOCUSATE SODIUM 100 MG CAPSULE (FP) PO SCH (21:17)
[2019-12-05] MEDS: PRENATAL VITAMINS W/ FOLIC ACID TABLET (FP) PO SCH (10:07)
[2019-12-05] MEDS: TOLNAFTATE 1% POWDER 45 GM POW TP SCH ×2 (10:07→21:18)
[2019-12-05] MEDS: HYDROCORTISONE 2.5% TOPICAL CREAM 30 GM TUBE TP SCH ×2 (10:09→21:18)
[2019-12-05] MEDS ORDERED: PT OWN MED DRAWER 7, Y5N ONE (16:23)
[2019-12-05] MEDS: DOCUSATE SODIUM 100 MG CAPSULE (FP) PO SCH (21:17)
[2019-12-05] MEDS: THIAMINE HCL 100 MG TABLET (FP) PO SCH (21:17)
[2019-12-05] MEDS: hydrOXYzine PAMOATE 25 MG CAPSULE (FP) PO PRN (21:17)
[2019-12-06] MEDS: HYDROCORTISONE 2.5% TOPICAL CREAM 30 GM TUBE TP SCH ×2 (09:56→21:09)
[2019-12-06] MEDS: PRENATAL VITAMINS W/ FOLIC ACID TABLET (FP) PO SCH (09:57)
[2019-12-06] MEDS: TOLNAFTATE 1% POWDER 45 GM POW TP SCH ×2 (09:57→21:09)
[2019-12-06] MEDS: IBUPROFEN 400 MG TABLET (FP) PO PRN (11:08)
[2019-12-06] MEDS: THIAMINE HCL 100 MG TABLET (FP) PO SCH (21:07)
[2019-12-06] MEDS: METHOCARBAMOL 500 MG TABLET PO PRN (21:07)
[2019-12-06] MEDS: MELATONIN 5 MG TABLETS PO PRN (21:07)
[2019-12-06] MEDS: DOCUSATE SODIUM 100 MG CAPSULE (FP) PO SCH (21:07)
[2019-12-06] MEDS: hydrOXYzine PAMOATE 25 MG CAPSULE (FP) PO PRN (21:08)
[2019-12-06] MEDS ORDERED: PT OWN MED DRAWER 7, Y5N ONE (21:10)
[2019-12-07] MEDS ORDERED: PT OWN MED DRAWER 7, Y5N ONE (08:57)
[2019-12-07] MEDS: TOLNAFTATE 1% POWDER 45 GM POW TP SCH ×2 (10:15→21:08)
[2019-12-07] MEDS: PRENATAL VITAMINS W/ FOLIC ACID TABLET (FP) PO SCH (10:15)
[2019-12-07] MEDS: HYDROCORTISONE 2.5% TOPICAL CREAM 30 GM TUBE TP SCH ×2 (10:15→21:08)
[2019-12-07] MEDS: MELATONIN 5 MG TABLETS PO PRN (21:07)
[2019-12-07] MEDS: THIAMINE HCL 100 MG TABLET (FP) PO SCH (21:07)
[2019-12-07] MEDS: hydrOXYzine PAMOATE 25 MG CAPSULE (FP) PO PRN (21:07)
[2019-12-07] MEDS: METHOCARBAMOL 500 MG TABLET PO PRN (21:07)
[2019-12-07] MEDS: DOCUSATE SODIUM 100 MG CAPSULE (FP) PO SCH (21:07)
[2019-12-07] MEDS: MAGNESIUM HYDROX 2400MG/30ML ORAL SUSPENSION 30 ML CUP PO PRN (21:09)
[2019-12-08] MEDS ORDERED: PT OWN MED DRAWER 7, Y5N ONE ×2 (08:26→20:27)
[2019-12-08] MEDS: PRENATAL VITAMINS W/ FOLIC ACID TABLET (FP) PO SCH (10:10)
[2019-12-08] MEDS: TOLNAFTATE 1% POWDER 45 GM POW TP SCH ×2 (10:10→22:14)
[2019-12-08] MEDS: HYDROCORTISONE 2.5% TOPICAL CREAM 30 GM TUBE TP SCH ×2 (10:10→21:52)
[2019-12-08] MEDS: ARTIFICIAL TEARS (POLYVINYL ALCOHOL) OPTH DROPS OU PRN (13:35)
[2019-12-08] MEDS: THIAMINE HCL 100 MG TABLET (FP) PO SCH (21:48)
[2019-12-08] MEDS: DOCUSATE SODIUM 100 MG CAPSULE (FP) PO SCH (21:48)
[2019-12-08] MEDS: MELATONIN 5 MG TABLETS PO PRN (21:52)
[2019-12-08] MEDS: MAGNESIUM HYDROX 2400MG/30ML ORAL SUSPENSION 30 ML CUP PO PRN (21:52)
[2019-12-08] MEDS: hydrOXYzine PAMOATE 25 MG CAPSULE (FP) PO PRN (21:52)
[2019-12-08] MEDS: ACETAMINOPHEN 325 MG TABLET (FP) PO PRN (21:53)
[2019-12-09] MEDS ORDERED: PT OWN MED DRAWER 7, Y5N ONE ×2 (08:45→21:22)
[2019-12-09] MEDS: HYDROCORTISONE 2.5% TOPICAL CREAM 30 GM TUBE TP SCH ×2 (10:21→21:21)
[2019-12-09] MEDS: PRENATAL VITAMINS W/ FOLIC ACID TABLET (FP) PO SCH (10:21)
[2019-12-09] MEDS: ARTIFICIAL TEARS (POLYVINYL ALCOHOL) OPTH DROPS OU PRN (10:22)
[2019-12-09] MEDS: TOLNAFTATE 1% POWDER 45 GM POW TP SCH ×2 (10:22→21:21)
[2019-12-09] MEDS: MAGNESIUM CITRATE 300 ML BOTTLE PO PRN (15:44)
[2019-12-09] MEDS: THIAMINE HCL 100 MG TABLET (FP) PO SCH (21:20)
[2019-12-09] MEDS: DOCUSATE SODIUM 100 MG CAPSULE (FP) PO SCH (21:20)
[2019-12-09] MEDS: MELATONIN 5 MG TABLETS PO PRN (21:21)
[2019-12-09] MEDS: hydrOXYzine PAMOATE 25 MG CAPSULE (FP) PO PRN (21:24)
[2019-12-10] MEDS: ARTIFICIAL TEARS (POLYVINYL ALCOHOL) OPTH DROPS OU PRN ×2 (10:23→21:29)
[2019-12-10] MEDS: HYDROCORTISONE 2.5% TOPICAL CREAM 30 GM TUBE TP SCH ×2 (10:23→21:31)
[2019-12-10] MEDS: TOLNAFTATE 1% POWDER 45 GM POW TP SCH ×2 (10:23→21:31)
[2019-12-10] MEDS: PRENATAL VITAMINS W/ FOLIC ACID TABLET (FP) PO SCH (10:23)
[2019-12-10] MEDS: MELATONIN 5 MG TABLETS PO PRN (21:28)
[2019-12-10] MEDS: DOCUSATE SODIUM 100 MG CAPSULE (FP) PO SCH (21:28)
[2019-12-10] MEDS: THIAMINE HCL 100 MG TABLET (FP) PO SCH (21:28)
[2019-12-10] MEDS: hydrOXYzine PAMOATE 25 MG CAPSULE (FP) PO PRN (21:28)
[2019-12-10] MEDS: METHOCARBAMOL 500 MG TABLET PO PRN (21:29)
[2019-12-11] MEDS ORDERED: PT OWN MED DRAWER 7, Y5N ONE ×2 (08:43→22:26)
[2019-12-11] MEDS: TOLNAFTATE 1% POWDER 45 GM POW TP SCH ×2 (09:47→21:26)
[2019-12-11] MEDS: PRENATAL VITAMINS W/ FOLIC ACID TABLET (FP) PO SCH (09:47)
[2019-12-11] MEDS: ARTIFICIAL TEARS (POLYVINYL ALCOHOL) OPTH DROPS OU PRN ×2 (09:47→21:25)
[2019-12-11] MEDS: HYDROCORTISONE 2.5% TOPICAL CREAM 30 GM TUBE TP SCH ×2 (09:47→21:25)
[2019-12-11] MEDS: DOCUSATE SODIUM 100 MG CAPSULE (FP) PO SCH (21:24)
[2019-12-11] MEDS: hydrOXYzine PAMOATE 25 MG CAPSULE (FP) PO PRN (21:24)
[2019-12-11] MEDS: THIAMINE HCL 100 MG TABLET (FP) PO SCH (21:24)
[2019-12-11] MEDS: METHOCARBAMOL 500 MG TABLET PO PRN (21:24)
[2019-12-11] MEDS: MELATONIN 5 MG TABLETS PO PRN (21:25)
[2019-12-12] MEDS: PRENATAL VITAMINS W/ FOLIC ACID TABLET (FP) PO SCH (10:19)
[2019-12-12] MEDS: HYDROCORTISONE 2.5% TOPICAL CREAM 30 GM TUBE TP SCH ×2 (10:20→21:16)
[2019-12-12] MEDS: TOLNAFTATE 1% POWDER 45 GM POW TP SCH ×2 (10:20→21:17)
[2019-12-12] MEDS: ARTIFICIAL TEARS (POLYVINYL ALCOHOL) OPTH DROPS OU PRN ×2 (10:20→21:16)
--- NOTE | 2019-12-12 11:10 | DS ---
[facility] Rehab Discharge Summary - [facility] Rehab Discharge Summary Admission Date: 11/17/19 Discharge Date: 12/12/19 - History Present History: Alcohol dependence, Cocaine dependence Pertinent Past History: 59 years old female with a long history of alcohol dependence. Patient reports that her last detox was for the period 05/20/2015 - 05/24/2015. This is her second admission to [facility] [place]. Patient reports insignificant period of sobriety and denies any detoxification since May 2015. She denies any medical history, psych. history and suicidal ideation at this time. She reports that she is homeless and has been in correction multiple times. - Discharge Physical Exam Vital Signs: Vital Signs Temperature 97.4 F L 12/12/19 06:56 Pulse Rate 88 12/12/19 06:56 Respiratory Rate 16 12/12/19 06:56 Blood Pressure 94/55 L 12/12/19 06:56 O2 Sat by Pulse Oximetry (%) Pertinent Admission Physical Exam Findings: Physical General Appearance: no apparent distress HEENTM: Normocephalic Respiratory: Lungs Clear Neck: supple Cardiology: s1 s2 Abdominal: +Bowel Sounds, Soft Musculoskeletal: Full weight bearing, steady gait Neurological: Cn 2-12 intact - Treatment Discharge Condition: Outpatient referral accepted (Patient will go to [facility]. Medically stable for discharge.) Hospital Course: patient attended groups, had 1;1 with counselor. She was seen by the psychiatric service. She was treated for constipation, foot fungus, back pain, and anxiety with good results while in detox. - Medication Discharge Medications: Ambulatory Orders Ammonium Lactate Cream [Lac-Hydrin 12% *Cream*] 1 applic TP DAILY 11/13/19 Ciclopirox Olamine [Ciclopirox] 15 gm TP DAILY 11/13/19 Ciclopirox [Penlac] 6.6 ml TP ASDIR 11/13/19 - Medication-Assisted Treatment (MAT) Medication-Assisted Treatment (MAT): No - Discharge Instructions Diet, activity, other medical instructions: Diet: as tolerated Activity: as tolerated Other medical instructions: Please follow up with discharge instructions and referral to aftercare. - Diagnosis (1) Alcohol dependence Current Visit: No Status: Chronic (2) Cocaine dependence Current Visit: No Status: Chronic - Follow-up Referral Minutes to complete discharge: 20 - AMA Did Patient Leave Against Medical Advice: No Additional Comments: Patient reported that she did not need prescriptions for medications transmitted to her pharmacy.
[2019-12-12] MEDS ORDERED: SODIUM PHOSPHATE/NA BIPHOS 133 ML ENEMA PR ONE (11:18)
[2019-12-12] MEDS: ACETAMINOPHEN 325 MG TABLET (FP) PO PRN (11:53)
[2019-12-12] MEDS: THIAMINE HCL 100 MG TABLET (FP) PO SCH (21:14)
[2019-12-12] MEDS: DOCUSATE SODIUM 100 MG CAPSULE (FP) PO SCH (21:14)
[2019-12-12] MEDS: MELATONIN 5 MG TABLETS PO PRN (21:15)
[2019-12-12] MEDS: METHOCARBAMOL 500 MG TABLET PO PRN (21:15)
[2019-12-12] MEDS: hydrOXYzine PAMOATE 25 MG CAPSULE (FP) PO PRN (21:15)
[2019-12-12] MEDS: MAG HYDROX/AL HYDROX/SIMETH 30 ML UNIT-DOSE CUP PO PRN (21:17)
[2019-12-13 07:24] VITALS: BP 101/64; PULSE 92; TEMP 97.6
== END 2019-12-13 08:44 | disposition home or self-care (01) | DRG 772 ==
LOC: YASAS 11:41 → Y3E 11:42
PROVIDERS: ADMIT Neuromusculoskeletal Medicine & OMM; ATTEND Neuromusculoskeletal Medicine & OMM
PROC: HZ42ZZZ Group Counseling for Substance Abuse Treatment, Cognitive-Behavioral (ICD-10-PCS; principal; 2019-11-17)
DX: F10.20 Alcohol dependence, uncomplicated (principal); F14.20 Cocaine dependence, uncomplicated; F12.20 Cannabis dependence, uncomplicated; F17.210 Nicotine dependence, cigarettes, uncomplicated; F41.9 Anxiety disorder, unspecified; B35.3 Tinea pedis; K62.89 Other specified diseases of anus and rectum